=== PATIENT | male | born 1940 | race Caucasian/White ===

== ENCOUNTER 2023-09-30 13:02 | Outpatient (CLI) | payer OTHER, SELFPAY ==
--- NOTE | 2023-09-30 16:40 | WPDSIXMINUTE ---
Six Minute Walk Procedure Procedure Performed Pulmonary Stress Test (6 min walk) Six Minute Walk Six Minute Walk: This is a 6 minute walk test. The test was performed and interpreted in accordance with the 2014 ERS/ATS task force guidelines. Of note, the patient used a walker. Findings: The patient's resting room air oxygen saturation measured by pulse oximetry was 91% and heart rate was 93 bpm. Patient ambulated for 183 meters and oxygen saturation remained 83 to 89%. Heart rate at the end of the study was 117 bpm. The patient did not qualify for supplemental oxygen at rest but did qualify for supplemental oxygen with ambulation and should have a formal home O2 assessment performed to determine his supplemental oxygen needs. There are no prior studies for comparison.
== END 2023-09-30 13:03 | disposition home or self-care (01) ==
LOC: ANHPFT 13:03
DX: J44.9 Chronic obstructive pulmonary disease, unspecified (principal)
CPT/HCPCS: 94618

== ENCOUNTER 2024-01-28 09:30 | Outpatient (RCR) | payer OTHER, SELFPAY ==
[2023-10-01 11:32] VITALS: BP 110/62; PULSE 78; RESP 18; O2SAT 95
[2023-10-01 12:04] VITALS: PULSE 89
== END 2024-01-28 23:59 | disposition home or self-care (01) ==
LOC: ANHCPREHAB 09:30
DX: J44.9 Chronic obstructive pulmonary disease, unspecified (principal)
CPT/HCPCS: 94625

== ENCOUNTER 2024-02-04 09:48 | Outpatient (RCR) | payer OTHER, SELFPAY ==
[2024-01-30 00:03] VITALS: BP 110/62; PULSE 89; RESP 18; O2SAT 95
== END 2024-03-06 09:41 | disposition home or self-care (01) ==
LOC: ANHCPREHAB 09:48
DX: J44.9 Chronic obstructive pulmonary disease, unspecified (principal)
CPT/HCPCS: 94625

== ENCOUNTER 2024-02-06 14:30 | Outpatient (CLI) | payer OTHER, SELFPAY ==
--- NOTE | ~2024-02-06 | XR_ITS ---
XR chest 2V DATE: 02/06/2024 14:58 INDICATION: Cough, exacerbation of shortness of breath. History of pulmonary emboli. TECHNIQUE: PA and lateral views COMPARISON: 07/29/2017 portable AP chest 07/30/2011 two-view chest FINDINGS: Bilateral hyperinflation and relative flattening of the diaphragms, suggesting COPD. Minimal infiltrate, atelectasis or scarring at the lung bases, greater on the right. No pulmonary consolidation is detected. Normal heart size. Extensive thoracic aortic calcification and mild tortuosity. No hilar or mediastin al enlargement. Normal heart size. 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 Osteopenia. IMPRESSION: COPD Minimal infiltrate, atelectasis or scarring at the lung bases Reviewed, dictated and finalized at location B.
== END 2024-02-06 14:31 | disposition home or self-care (01) ==
LOC: ANHIMG 14:34
DX: R91.8 Other nonspecific abnormal finding of lung field (principal)
CPT/HCPCS: 71046

== ENCOUNTER 2024-02-15 08:38 | Outpatient (CLI) | payer OTHER, SELFPAY ==
[2024-02-15 09:45] LABS: Anion Gap 7 mmol/L (4-12); Blood Urea Nitrogen 49 mg/dL (9-20); Calcium 9.2 mg/dL (8.4-10.2); Carbon Dioxide 33 mmol/L (22-30); Chloride 97 mmol/L (98-107); Estimated Glomerular Filt Rate 34; Glucose 102 mg/dL (65-110); Potassium 4.1 mmol/L (3.4-5.0); Sodium 137 mmol/L (137-145)
[2024-02-15 09:50] LABS: NT Pro B Type Natriuretic Pept 1640 pg/mL (19.9-100)
== END 2024-02-15 08:39 | disposition home or self-care (01) ==
DX: I50.30 Unspecified diastolic (congestive) heart failure (principal)
CPT/HCPCS: 36415; 80048; 83880

== ENCOUNTER 2024-02-29 07:51 | Outpatient (CLI) | payer OTHER, SELFPAY ==
[2024-02-29 08:47] LABS: Basophils Percent Auto 0.3 % (0.2-1.2); Eosinophils Absolute Auto 0.2 K/mm3 (0-0.3); Eosinophils Percent Auto 1.9 % (0-4.4); Hematocrit 33.3 % (42.0-52.0); Hemoglobin 10.6 g/dL (14.0-18.0); Immature Granulocyte Absolute 0.08 K/mm3 (0.00-0.031); Immature Granulocyte Percent A 0.8 % (0-0.5); Lymphocytes Absolute Auto 1.69 K/mm3 (0.9-3.2); Lymphocytes Percent Auto 16.8 % (18.3-44.2); Mean Corpuscular HGB Conc 31.8 g/dl (32-36); Mean Corpuscular Hemoglobin 30.5 pg (26-34); Mean Corpuscular Volume 95.7 fl (80-100); Mean Platelet Volume 9.4 fl (7.4-10.4); Monocytes Absolute Auto 0.9 K/mm3 (0.1-0.6); Monocytes Percent Auto 8.5 % (2.6-8.5); Neutrophils Absolute Auto 7.2 K/mm3 (1.3-6.7); Neutrophils Percent Auto 71.7 % (45.5-73.1); Platelet Count Result 248 k/mm3 (150-375); Red Blood Count 3.48 M/mm3 (4.6-6.20); Red Cell Distribution Width 14.4 % (11.5-14.5); White Blood Count 10.1 K/mm3 (4.5-10.0)
[2024-02-29 09:08] LABS: Iron 62 ug/dL (49-181)
[2024-02-29 09:11] LABS: Alanine Aminotransferase 14 U/L (6-50); Alkaline Phosphatase 75 U/L (38-126); Anion Gap 7 mmol/L (4-12); Aspartate Amino Transferase 23 U/L (17-59); Bilirubin,Total 0.6 mg/dL (0.2-1.3); Blood Urea Nitrogen 33 mg/dL (9-20); Calcium 9.4 mg/dL (8.4-10.2); Carbon Dioxide 29 mmol/L (22-30); Chloride 100 mmol/L (98-107); Estimated Glomerular Filt Rate 36; Glucose 103 mg/dL (65-110); Potassium 4.1 mmol/L (3.4-5.0); Sodium 136 mmol/L (137-145)
[2024-02-29 09:16] LABS: NT Pro B Type Natriuretic Pept 3810 pg/mL (19.9-100)
[2024-02-29 09:17] LABS: Percent Iron Saturation 19 % (20-50)
== END 2024-02-29 07:52 | disposition home or self-care (01) ==
DX: I48.0 Paroxysmal atrial fibrillation (principal); I50.20 Unspecified systolic (congestive) heart failure; J44.9 Chronic obstructive pulmonary disease, unspecified
CPT/HCPCS: 36415; 80053; 82728; 83540; 83550; 83880; 85025

== ENCOUNTER 2024-03-13 12:30 | Outpatient (CLI) | payer OTHER, SELFPAY ==
--- NOTE | 2024-03-16 12:46 | WPDSIXMINUTE ---
Six Minute Walk Procedure Procedure Performed Pulmonary Stress Test (6 min walk) Six Minute Walk Six Minute Walk: This is a 6 minute walk test. The test was performed and interpreted in accordance with the 2014 ERS/ATS task force guidelines. of note the patient used a wheeled walker and 5 liters/minute nasal cannula. Findings: The patient's resting 5 L nasal cannula oxygen saturation measured by pulse oximetry was 95% and heart rate was 95 bpm. Patient ambulated for 305 meters and oxygen saturation remained 93 to 96%. Heart rate at the end of the study was 114 bpm. The patient had adequate saturations with 5 L nasal cannula with rest and ambulation. Compared to previous 6 minute walk on 09/30/2023, patient's ambulatory distance increased from 183 m to 305 m.
== END 2024-03-13 12:31 | disposition home or self-care (01) ==
PROVIDERS: Visit Provider Internal Medicine
DX: J44.9 Chronic obstructive pulmonary disease, unspecified (principal)
CPT/HCPCS: 94618

== ENCOUNTER 2024-03-20 07:36 | Outpatient (CLI) | payer OTHER, SELFPAY ==
[2024-03-20 08:53] LABS: Anion Gap 6 mmol/L (4-12); Blood Urea Nitrogen 35 mg/dL (9-20); Calcium 8.8 mg/dL (8.4-10.2); Carbon Dioxide 32 mmol/L (22-30); Chloride 101 mmol/L (98-107); Estimated Glomerular Filt Rate 36; Glucose 98 mg/dL (65-110); Potassium 4.1 mmol/L (3.4-5.0); Sodium 139 mmol/L (137-145)
[2024-03-20 08:56] LABS: NT Pro B Type Natriuretic Pept 2530 pg/mL (19.9-100)
== END 2024-03-20 07:37 | disposition home or self-care (01) ==
PROVIDERS: PCP Internal Medicine
DX: I50.20 Unspecified systolic (congestive) heart failure (principal)
CPT/HCPCS: 36415; 80048; 83880